=== PATIENT | male | born 1945 | race Caucasian/White ===

== ENCOUNTER 2024-10-28 10:31 | Outpatient (REF) | payer MEDICARE, SELFPAY ==
[2024-10-28 10:53] LABS: Chloride* 110 mmol/L (96-114); Potassium* 4.6 mmol/L (3.6-5.1); Sodium* 142 mmol/L (135-149)
[2024-10-28 10:56] LABS: Anion Gap 8 mEq/L (7-15); Blood Urea Nitrogen* 28 mg/dL (7-30); Calcium* 9.1 mg/dL (8.4-10.6); Carbon Dioxide* 24 mmol/L (20-32); Creatinine* 1.2 mg/dL (0.5-1.5); Estimated Glomerular Filt Rate 61 ml/min; Glucose* 83 mg/dL (60-115)
--- OUTSIDE RECORDS SUMMARY | 2024-10-29 00:14 | XMS_ITS | Clinical Summary ---
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 Had taken Bactrim for R leg cellulitis. Medications ARTIFICIAL TEARS EYE DROPS by right eye three times daily 0 7 Active aspirin (ECOTRIN) 81 mg enteric coated tablet Daily Active atorvastatin (LIPITOR) 40 mg tabletIndications:A SCVD (arteriosclerotic cardiovascular disease),Dyslipidem ia Take 1 tablet by mouth once daily. 90 tablet. 1 0 Active nitroglycerin (NITROSTAT) 0.4 mg sublingual tabletIndications:A SCVD (arteriosclerotic cardiovascular disease) Place 1 tablet under the tongue every 5 minutes if needed for Chest Pain. 100 tablet 1 0 Active folic acid 1 mg tabletIndications:R heumatoid arthritis involving multiple sites with positive rheumatoid factor (HC) Take 1 tablet by mouth once daily. 90 tablet. 1 0 Active metoprolol tartrate (LOPRESSOR) 25 mg tabletIndications:H ypertension, unspecified type Take 0.5 Tablets (12.5 mg) by mouth 2 times daily. 90 Tablet 3 1 Active apixaban (Eliquis) 2.5 mg tabletIndications:A trial fibrillation, unspecified type (HC) Take 1 Tablet (2.5 mg) by mouth 2 times daily. 180 tablet. 3 1 Active amLODIPine (NORVASC) 10 mg tabletIndications:H TN (hypertension) Take 1 Tablet (10 mg) by mouth once daily. 90 Tablet 3 1 Active methotrexate (RHEUMATREX) 2.5 mg tabletIndications:R heumatoid arthritis involving multiple sites with positive rheumatoid factor (HC) 7 tabs once a week (17.5mg/week ) 84 tablet. 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 Unclear etiology. Improved with conservative mgmt over 5 days. Did not use steroids. ? Related to recent antibiotics but unable to know for sure. Influenza-like symptoms 01/04/200904/10 Overview (01/07/2009): 12/18: empirically started on tamiflu. H1N1 PCR negative. Rash and other nonspecific skin eruption 01/04/2009 05/06/2012 Elevated troponin 01/04/2009 01/07/2009 Elevated troponin 12/31/2008 01/04/2009 Hyponatremia 12/31/2008 01/04/2009 Metabolic acidosis, normal anion gap (NAG) 12/31/2008 01/04/2009 Conjunctivitis of right eye 12/31/2008 05/06/2012 Cellulitis of Right Leg 12/31/200804/10 Diarrhea 12/31/2008 05/06/2012 Coronary atherosclerosis of unspecified type of vessel, white earth or graft 06/03/2007 06/03/2007 Chest pain, unspecified 05/21/200712/11 Overview (05/22/2007): A) 05/21/07 BMS to OM! Tobacco use disorder 05/21/2007 013 Unspecified ocular penetration 11/06/2006 05/06/2012 Superficial injury of eyelid s and periocular area 11/06/2006 05/06/2012 Encounters Date Type Department Care Team Description 10/12/2024 Lab Requisition [facility] [phone] Tiburcio Leroy MD from Last 3 Months Immunizations Immunization Administration Dates Next Due COVID-19 vaccine ([employer] 30mcg/0.3mL) PFJENNIFER 10/17/2020,09/20/2020 Influenza A (H1N1), Inactivated 02/21/2009 Influenza, High-dose Inactivated 10/23/2015 Influenza, IIV3 (Age >=3 years) 01/03/20 14,11/14/2009,01/21/2007,2006 Influenza, IIV4 02/21/2009 Influenza, Inactivated AIIV4 (Age 65+ Years) Preserv Free 01/26/2020 Influenza, Inactivated IIV3 (Age 65+ Years) Preserv Free 01/20/2019 Pneumococcal Poly,23-Valent (Pneumovax) 11/22/2009 Pneumococcal conj 13-Valent (Prevnar 13) 08/16/2014 Td (Age >=7 Years) 04/01/2006 Tdap 09/15/2017,04/01/2006 Family History Medical History Relation Name Comments Cancer Father mesothelioma Hyperlipidemia Father Arthritis Mother Cancer Mother stomach Relation Name Status Comments Daughter 1 Alive Daughter 2 Alive Father Mother Son Alive Social History Tobacco Use Types Packs/Day Years Used Date Smoking Tobacco: Every Day Cigarettes 0.3 45 Smokeless Tobacco: Never Tobacco Cessation:Ready to Q uit: No; Counseling Given: Yes Alcohol Use Standard Drinks/Week Comments Yes 0 (1 standard drink = 0.6 oz pur e alcohol) very little PHQ-2 Answer Date Recorded PHQ-2 TOTAL SCORE 0 09/20/2020 Social Connections Answer Date Recorded Frequency of Communication with Friends and Fami ly Not on file 02/09/2021 Financial Resource Strain Answer Date R ecorded Difficulty of Paying Living Expenses Not on file 02/09/2021 Difficulty of Paying Living Expenses Not on file 02/09/2021 Sex and Gender Information Value Date Recorded Sex Assigned at Not on file Legal Sex 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 Gender Identity Not on file Sexual Orientation Not on file 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 Not on file Not on file Obstetrics History Last Filed Vital Signs Vital Sign Reading Time Taken Comments Blood Pressure 124/72 04/15/2021 12:01 PM 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 Pulse 60 04/15/2021 12:01 PM [employer] 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 Temperature 36.6 C (97.9 F) 01/26/2020 12:56 PM 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 Respiratory Rate 16 04/15/2021 12:0 1 PM 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 Oxygen Saturation 100% 09/20/2020 12: 45 PM CDT Inhaled Oxygen Concentration - - Weight 66.1 kg (145 lb 12.8 oz) 022 12:01 PM [employer] 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 Height 170.2 cm (5' 7) 09/20/2020 12:4 5 PM CDT Body Mass Index 22.84 09/20/2020 12:45 PM CDT Plan of Treatment Health Maintenance Due Date Last Done Comments Zoster (shingles) series for age 50+ (1 of 2) 1994 Medicare Wellness for age 65+ 2009 RSV vaccine for adults or (1 - 1-dose 75+ series) 2019 BMI (ht and wt on same day) for age 18+ 09/20/2021 09/20/2020, 01/26/2020, 07/20/2019, Additional history exists Depression screening for age 12+ 09/20/2021 09/20/2020, 07/20/2019, 07/20/2019, Additional history exists COVID-19 vaccine series ( season) 2024 10/17/2020, 09/20/2020 Influenza Vaccine (#1) 2024 , 01/20/2019, 10/23/2015, Additional history exists Tetanus booster 09/16/2027 09/15/2017, 03/13, 04/01/2006 Pneumococcal series for age 50+ Completed 08/16/2014, 11/22/2009 Hepatitis B series for 19+ Aged Out N o longer eligible based on patient's age to complete this topic Procedures Procedure Name Priority Date/Time Associated Diagnosis Comments BASIC METABOLIC PANEL Routine 10/18/2024 10:42 AM CDT Atherosclerotic heart disease of white earth coronary artery without angina pectoris from Last 3 Months Results * (ABNORMAL) BASIC METABOLIC PANEL (10/18/2024 10:42 AM CDT) SODIUM 140 136 - 145 mmol/L 10/18/2024 12:41 PM CDT [facility] POTASSIUM 6.2(HH) 3.5 - 5.1 mmol/L 10/18/2024 12:41 PM CDT [facility] CHLORIDE 106 98 - 107 mmol/L 10/18/2024 12:41 PM CDT [facility] CO2,TOTAL 18(L) 22 - 29 mmol/L 10/18/2024 12:41 PM CDT [facility] ANION GAP 16 5 - 18 10/18/2024 12:41 PM CDT [facility] GLUCOSE 83 70 - 99 mg/dL 10/18/2024 12:41 PM CDT [facility] CALCIUM 9.4 8.8 - 10.4 mg/dL 10/18/2024 12:41 PM CDT [facility] Comment: Reference ranges for this test were updated on 12/15/2023 to reflect our healthy population more accurately. Reference range changes are not retroactively applied to results, but previous results using the same methodology can be interpreted in the context of the new reference range. BUN 30(H) 8 - 23 mg/dL 10/18/2024 12:41 PM CDT [facility] CREATININE 1.42(H) 0.70 - 1.20 mg/dL 10/18/2024 12:41 PM CDT [facility] BUN/CREAT RATIO 21(H) 10 - 20 12:41 PM CDT [facility] eGFR 50(L) >90 mL/min/1. 73m2 10/18/2024 12:41 PM T [facility] Comment:As of 2021, eG FR is calculated by the CKD-EPI creatinine equation without race adjustment. eGFR can be influenced by muscle mass, exercise, and diet. The reported eGFR is an estimation only and is only applicable if the renal function is stable. Blood BLOOD SPECIMEN / Unknown Butterfly / Unknown 10/18/2024 10:42 AM CDT 10/18/2024 12:04 PM CDT us Tiburcio Leroy MD CHEMISTRY Final Result [facility] [address] [place] [id number], from Last 3 Months Insurance MEDICARE PART B HB ONLY MEDICARE PART A HB ONLY [employer] PB [place] [address] [place] [address] Advance Directives Documents on File Type Date Recorded Patient [employer] Car [employer]er Expl anation Power of Static Balancer 08/05/2021 12:00 AM SHOR T FORM- NOT MEDICAL * Full Code (Latest Code Status on File) Date Activated Date Inactivated Comments 07/29/2011 7:59 AM 07/30/2011 1:48 PM * Full Code Date Activated Date Inactivated Comments 12/31/2008 12:14 PM 01/06/2009 4:11 PM * Full Code Date Activated Date Inactivated Comments 05/21/2007 4:05 PM 05/22/2007 2:12 PM Care Teams [facility] Relationship Specialty Start Date End Date Nba Sarah MD Cardiology Cardiovascular Disease 06/03/11 Jourdan Richmond MD [address] [facility] [address] [facility] [address] [place] [address] Rheumatology Rheumatology 06/17/18
== END 2024-10-28 10:32 | disposition home or self-care (01) ==
LOC: NPINS 10:31
PROVIDERS: PCP Family Medicine; Visit Provider Nurse Practitioner Gerontology
DX: E87.5 Hyperkalemia (principal)
CPT/HCPCS: 80048